=== PATIENT | male | born 1990 | race Caucasian/White ===

== ENCOUNTER 2018-05-24 11:23 | Emergency (ER) | payer SELFPAY ==
--- NOTE | 2018-05-24 12:08 | EDM.PDOC ---
ED HPI GENERAL MEDICAL PROBLEM - General Chief Complaint: Eye Problems Stated Complaint: METAL IN L EYE Time Seen by Provider: 05/24/18 11:45 Source of Information: Reports: Patient History Limitations: Reports: No Limitations - History of Present Illness INITIAL COMMENTS - FREE TEXT/NARRATIVE: 27 year old man while working at [employer] got something in his left eye 1/2 hr ago and is sore woithou change in vison. he had is goggle on adn stile something flew into his eye Onset: Today Quality: Reports: Ache Severity: Mild Improves with: Reports: None, Other (eye movement) Associated Symptoms: Reports: No Other Symptoms - Related Data Allergies Allergy/AdvReac Type Severity Reaction Status Date / Time No Known Allergies Allergy Verified 05/24/18 11:37 Home Meds: Home Meds NK [No Known Home Meds] 05/24/18 [History] Past Medical History - Past Health History Medical/Surgical History: Denies Medical/Surgical History Social & Family History - Family History Family Medical History: Noncontributory - Tobacco Use Smoking Status *Q: Current Every Day Smoker Years of Tobacco use: 4 Packs/Tins Daily: 0.5 - Recreational Drug Use Recreational Drug Use: No ED ROS GENERAL - Review of Systems Review Of Systems: See Below Constitutional: Reports: No Symptoms HEENT: Reports: Eye Pain Respiratory: Reports: No Symptoms Cardiovascular: Reports: No Symptoms Endocrine: Reports: No Symptoms GI/Abdominal: Reports: No Symptoms : Reports: No Symptoms Skin: Reports: No Symptoms Neurological: Reports: No Symptoms Psychiatric: Reports: No Symptoms Hematologic/Lymphatic: Reports: No Symptoms Immunologic: Reports: No Symptoms ED EXAM GENERAL W FULL EYE - Physical Exam Exam: See Below Exam Limited By: No Limitations General Appearance: Alert, Mild Distress Eye Exam: Left Eye: Conjunctival Injection, Foreign Body (7 OCLOCK POSITION WITH FLUROSCEIN DYE ), Bilateral Eye: PERRL Course - Vital Signs Last Recorded V/S: Last Vital Signs Temp 37.1 C 05/24/18 11:25 Pulse 95 05/24/18 11:25 Resp 16 05/24/18 11:25 BP 130/75 05/24/18 11:25 Pulse Ox 100 05/24/18 11:25 Departure - Departure Time of Disposition: 12:05 (REPEAT USE TRIPLE ANTIBIOTIC OINTMENT IN 6HOURS THEN DC ) Disposition: Home, Self-Care 01 Clinical Impression: Foreign body in eyeball, left - Discharge Information *PRESCRIPTION DRUG MONITORING PROGRAM REVIEWED*: No *COPY OF PRESCRIPTION DRUG MONITORING REPORT IN PATIENT ELROY: No Additional Instructions: RE-INSTILL TRIPLE ANTIBIOTIC OINTMENT IN LEFT EYE IN 6 HOURS THEN DISCOTINIUE, RECHECK WITH MD IN 24 HOUR IF STILL HAVE PAIN, OTHERWISE FOLLOW UP WITH MD IN 3-7 DAYS WEAR EYE PROTECTION GOGGLES AT WORK AT ALL TIMES VICODIN 2 TAB 1 Q 4 H-6HR FOR EXCESSIVE PAIN NOT RELIEVED WITH 1000 MG OF TYLENOL AND 600 MG OF IBUPROFEN TAKEN TOGETHER
== END 2018-05-24 12:35 | disposition home or self-care (01) ==
LOC: FB.ED 11:23
DX: T15.82XA Foreign body in other and multiple parts of external eye, left eye, initial encounter (principal); F17.210 Nicotine dependence, cigarettes, uncomplicated; W45.8XXA Other foreign body or object entering through skin, initial encounter
CPT/HCPCS: 99283

== ENCOUNTER 2018-05-30 10:03 | Emergency (ER) | payer OTHER ==
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
[2018-05-30] MEDS ORDERED: Ibuprofen 600 MG Tab PO ONE (10:28)
== END 2018-05-30 11:45 ==
LOC: FB.ED 10:03
DX: S13.4XXA Sprain of ligaments of cervical spine, initial encounter (principal); F10.129 Alcohol abuse with intoxication, unspecified; V89.2XXA Person injured in unspecified motor-vehicle accident, traffic, initial encounter
CPT/HCPCS: 70450; 72125; 99282; A9270